=== PATIENT | female | born 1960 | race Two or more races ===

== ENCOUNTER 2022-04-07 04:55 | Day surgery (SDC) | payer OTHER ==
[~2022-04-07 04:55] MED LIST: ALTACE10 MG; CARAFATE1 GM; CLONAZEPAM2 MG; LYRICA225 MG PO; PROTONIX40 M1 PO; XANAX2 MG; ZANAFLEX4 M1
[2022-04-07] MEDS ORDERED: PERCOCET 5-3251 EACH PO (09:08)
== END 2022-04-07 14:35 | disposition home or self-care (01) ==
LOC: CIR.AMB 04:55 → EDBD 12:15 → CIR.AMB 14:35
PROVIDERS: ATTEND Surgery
DX: K64.8 Other hemorrhoids (principal); Z20.822 Contact with and (suspected) exposure to COVID-19; I10 Essential (primary) hypertension